=== PATIENT | female | born 1955 | race Two or more races ===

== ENCOUNTER 2024-05-18 09:57 | Emergency (ER) | payer MEDICARE ==
[~2024-05-18] VITALS: Ht 144.8 cm; Wt 54.0 kg
[~2024-05-18 09:57] MED LIST: MUCINEX600 MG PO; TYLENOL500 MG PO; ZITHROMAX250 MG PO; ZOFRAN4 MG/TAB PO
[2024-05-18 12:28] VITALS: BP 141/76
[2024-05-18 12:30] VITALS: BP 133/73
[2024-05-18 13:51] LABS: URINE BILIRUBIN - DIPSTICK Negative (NEGATIVE); URINE BLOOD DIPSTICK Trace-intact (NEGATIVE); URINE GLUCOSE - DIPSTICK Negative (NEGATIVE); URINE KETONE Negative (NEGATIVE); URINE LEUK ESTERASE Negative (NEGATIVE); URINE NITRITE - DIPSTICK Negative (Negative); URINE PH 5.5 (4.5-8.0); URINE PROTEIN - DIPSTICK Negative (NEG-TRACE); URINE SPECIFIC GRAVITY 1.015; URINE UROBILINOGEN - DIPSTICK 0.2 E.U./dL (0.2)
[2024-05-18 13:53] LABS: URINE COLOR Yellow
[2024-05-18] MEDS ORDERED: PHENAZOPYRIDIN100 M1 PO (14:05)
[2024-05-18] MEDS ORDERED: ZOFRAN4 MG/TAB PO (14:05)
[2024-05-18 14:11] VITALS: BP 133/73
== END 2024-05-18 14:38 | disposition home or self-care (01) ==
LOC: ED 09:57
PROVIDERS: Nurse Practitioner
DX: U07.1 COVID-19 (principal); R09.81 Nasal congestion; R05.9 Cough, unspecified; R52 Pain, unspecified; J44.9 Chronic obstructive pulmonary disease, unspecified; R30.0 Dysuria; I10 Essential (primary) hypertension; I25.10 Atherosclerotic heart disease of native coronary artery without angina pectoris; R50.9 Fever, unspecified

== ENCOUNTER 2024-06-30 08:09 | Day surgery (SDC) | payer MEDICARE ==
[~2024-06-30] VITALS: Ht 147.3 cm; Wt 49.9 kg
[~2024-06-30 08:09] MED LIST changes: +ALBUTEROL SULFA0.51; +ATORVASTATIN CA40 MG PO; +BL ASPIRIN325 MG PO; +CALCIUM 500+D PO; +CLOBETASOL0.051 EX; +D3; +DICYCLOMINE HYD10 MG PO; +ESTROVE1 PO; +FISH OIL1 CAP PO; +METOPROLOL SUCC50 MG PO; +NORVASC10 M1 PO; +OMEGA 3; +OMEPRAZOLE DR40 MG PO; +ONDANSETRON4 MG PO; +PHENAZOPYRIDIN100 M1 PO; +PHILLIPS500 MG PO; +POTASSIUM CITRA PO; +QC ALLERGY10 MG PO; +SYMBICORT 80-4.5MCG; +VENTOLIN HFA108 MCG IN
[2024-06-30] MEDS ORDERED: SODIUM CHLORIDE 0.9% 1,000 ML IV ONE (08:28)
[2024-06-30] MEDS ORDERED: FAMOTIDINE 10MG/ML 2ML SDV IV ONE (08:28)
[2024-06-30 09:40] VITALS: BP 119/71
[2024-06-30] MEDS ORDERED: LIDOCAINE HCL 2% 2ML SDV IV ONE (15:36)
[2024-06-30] MEDS ORDERED: PROPOFOL 200 MG/20 ML VIAL IV ONE (15:36)
[2024-06-30] MEDS ORDERED: GLYCOPYRROLATE 0.2 MG/ML IV ONE (15:36)
== END 2024-06-30 10:05 | disposition home or self-care (01) ==
LOC: ORM 08:09
PROVIDERS: ATTEND Surgery
PROC: 0DJD8ZZ Inspection of Lower Intestinal Tract, Via Natural or Artificial Opening Endoscopic (ICD-10-PCS; principal; 2024-06-30)
DX: Z12.11 Encounter for screening for malignant neoplasm of colon (principal); K57.30 Diverticulosis of large intestine without perforation or abscess without bleeding; K64.8 Other hemorrhoids; I10 Essential (primary) hypertension; Z86.73 Personal history of transient ischemic attack (TIA), and cerebral infarction without residual deficits

== ENCOUNTER 2024-07-19 16:17 | Emergency (ER) | payer MEDICARE ==
[~2024-07-19] VITALS: Ht 147.3 cm; Wt 63.0 kg
[2024-07-19 16:42] VITALS: BP 138/77
[2024-07-19 17:01] VITALS: BP 119/96
[2024-07-19 17:30] VITALS: BP 138/70
[2024-07-19 18:00] VITALS: BP 125/61
[2024-07-19 18:30] VITALS: BP 121/73
[2024-07-19 18:41] VITALS: BP 121/73
== END 2024-07-19 18:45 | disposition home or self-care (01) ==
LOC: ED 16:17
DX: Z48.01 Encounter for change or removal of surgical wound dressing (principal); I10 Essential (primary) hypertension; Z98.890 Other specified postprocedural states